=== PATIENT | female | born 1960 | race Caucasian/White ===

== ENCOUNTER 2017-01-14 06:33 | Day surgery (SDC) | payer OTHER ==
[2017-01-07 16:03] LABS: ALANINE AMINOTRANSFERASE 19 IU/L (9-52); ALBUMIN 3.7 g/dL (3.5-5.0); ALKALINE PHOSPHATASE 80 IU/L (38-126); ANION GAP 9 mEq/L (8-16); ASPARTATE AMINOTRANSFERASE 19 IU/L (14-46); BILIRUBIN,TOTAL 0.4 mg/dL (0.1-1.4); CALCIUM 10.3 mg/dL (8.5-10.4); CARBON DIOXIDE 26 mEq/l (22-31); CHLORIDE 101 mEq/L (97-110); CREATININE 0.8 mg/dL (0.6-1.0); GLOMERULAR FILTRATION RATE > 60; GLUCOSE 111 mg/dL (70-100); POTASSIUM 3.8 mEq/L (3.5-5.2); SODIUM 136 mEq/L (134-144); TOTAL PROTEIN 6.5 g/dL (6.3-8.2)
[2017-01-14] MEDS ORDERED: LIDOCAINE 1% 2 ML INJ ID PRN (07:27)
[2017-01-14] MEDS ORDERED: LR 1,000 ML IV ONE (07:27)
[2017-01-14] MEDS ORDERED: MIDAZOLAM 2 MG/2 ML VIAL IVP ONE (07:57)
--- NOTE | 2017-01-14 07:58 | PDANEPAE ---
ANE Past Medical History - Cardiovascular History Hx Hypertension: Yes Hx Arrhythmias: No Hx Chest Pain: No Hx Coronary Artery / Peripheral Vascular Disease: No Hx CHF / Valvular Disease: No Hx Palpitations: No Cardiovascular History Comment: mild htn - Pulmonary History Hx COPD: No Hx Asthma/Reactive Airway Disease: No Hx Recent Upper Respiratory Infection: No Hx Oxygen in Use at Home: No Hx Sleep Apnea: No Sleep Apnea Screening Result - Last Documented: Negative Pulmonary History Comment: exercise induced asthma - Neurologic History Hx Cerebrovascular Accident: No Hx Seizures: No Hx Dementia: No - Endocrine History Hx Diabetes: No Hypothyroid: No Hyperthyroid: No Obesity: no - Renal History Hx Renal Disorders: No - Liver History Hx Hepatic Disorders: No - Neurological & Psychiatric Hx Hx Neurological and Psychiatric Disorders: No - Cancer History Hx Cancer: No - Congenital Disorder History Hx Congenital Disorders: No - GI History GERD: no Hx Gastrointestinal Disorders: No - Other Health History Other Health History: none - Chronic Pain History Chronic Pain: No - Surgical History Prior Surgeries: none ANE Review of Systems Review of Systems: - Exercise capacity METS (RN): 5 METS ANE Patient History - Allergies Allergies/Adverse Reactions: doxycycline Allergy (Verified 01/14/17 07:18) Hives - Home Medications Home Medications: Claritin 01/06/17 [Last Taken 01/14/17 05:45] Epinastine HCl 01/06/17 [Last Taken 01/14/17 05:45] Flonase Allergy Relief 01/06/17 [Last Taken 01/14/17 05:45] Premarin 01/06/17 [Last Taken 01/14/17 05:45] - NPO status NPO Since - Liquids (Date): 01/14/17 NPO Since - Liquids (Time): 02:00 NPO Since - Solids (Date): 01/13/17 NPO Since - Solids (Time): 18:00 - Anes Hx Anes Hx: post operative nausea and vomiting, slow to awaken from anesthesia - Smoking Hx Smoking Status: Never smoked - Family Anes Hx Family Anes Hx: neg - N/A Family Hx Anesthesia Complications: none ANE Labs/Vital Signs - Labs Result Diagrams: 01/07/17 14:40 - Vital Signs Blood Pressure: 120/78 Heart Rate: 54 Respiratory Rate: 16 O2 Sat (%): 97 Height: 172.72 cm Weight: 58.06 kg ANE Physical Exam - Airway Mallampati Score: Class 1 Mouth exam: normal dental/mouth exam - Pulmonary Pulmonary: no respiratory distress, no rales or rhonchi, clear to auscultation - Cardiovascular Cardiovascular: regular rate and rhythym, no murmur, rub, or gallop - ASA Status ASA Status: II ANE Anesthesia Plan Anesthesia Plan: GA w LMA Total IV Anesthesia: No
[2017-01-14] MEDS ORDERED: PROPOFOL/EMULSION 500 MG/50 ML BOTTLE IV ONE (08:12)
[2017-01-14] MEDS ORDERED: fentaNYL 100 MCG/2 ML INJ ONE ×2 (08:12→09:49)
[2017-01-14] MEDS ORDERED: ONDANSETRON 4 MG/2 ML VIAL ONE (08:13)
[2017-01-14] MEDS ORDERED: KETOROLAC 30 MG/1 ML SDV ONE (08:14)
[2017-01-14] MEDS ORDERED: DEXAMETHASONE 4 MG/ML VIAL ONE (08:14)
[2017-01-14] MEDS ORDERED: RANITIDINE 50 MG/2 ML VIAL ONE (08:14)
--- NOTE | 2017-01-14 08:15 | PDHPUP ---
History & Physical Update H&P update statement: This history and physical update is based on an assessment of the patient which was completed after admission or registration (within 24 hours), but prior to the surgery/procedure.
[2017-01-14] MEDS ORDERED: LIDOCAINE 2% 5 ML SDV ONE (08:17)
[2017-01-14] MEDS ORDERED: MEPERIDINE 25 MG/ML SYR IVP PRN (08:49)
[2017-01-14] MEDS ORDERED: ACETAMINOPHEN 500 MG TAB PO PRN (08:49)
[2017-01-14] MEDS ORDERED: fentaNYL 100 MCG/2 ML INJ IVP PRN (08:49)
[2017-01-14] MEDS ORDERED: HYDROCODONE/APAP 5/325 TAB PO PRN (08:49)
[2017-01-14] MEDS ORDERED: NALOXONE HCL 0.4 MG/ML INJ IVP PRN (08:49)
[2017-01-14] MEDS ORDERED: OXYCODONE/APAP 5/325 TAB PO PRN (08:49)
[2017-01-14] MEDS ORDERED: LR 500 ML IV PRN (08:49)
[2017-01-14] MEDS ORDERED: ONDANSETRON 4 MG/2 ML VIAL IVP PRN (08:49)
--- NOTE | 2017-01-14 09:23 | POSTOPPROG ---
Post Op Note Date of Operation: 01/14/17 Surgeon: Elisha Gauthier Anesthesiologist: Holger Sue Anesthesia: LMA Pre-op Diagnosis: endometrial mass Post-op Diagnosis: endometrial polyp Indication: incidenatl mass Procedure: dx H/S , H/S removal of mass/polypectomy Findings: uterine polyp Inf/Abcess present in the surg proc area at time of surgery?: No EBL: Minimal
--- NOTE | 2017-01-14 09:33 | POSTANESTH ---
Post Anesthetic Evaluation Cardiovascular Status: Normal, Stable Respiratory Status: Normal, Stable Level of Consciousness/Mental Status: Can Participate in Eval Pain Control: Adequate, Prn Tx Ordered Nausea/Vomiting Control: Adequate, Prn Tx Ordered Complications Possibly Related to Anesthesia: None Noted
[2017-01-14 10:10] VITALS: TEMP 97.9
--- NOTE | 2017-01-14 10:14 | GOP ---
[f rep st] OPERATIVE REPORT DATE OF OPERATION: 01/14/2017 SURGEON: Elisha Gauthier MD ANESTHESIA: General with LMA. ANESTHESIOLOGIST: Holger Sue. PREOPERATIVE DIAGNOSIS: Incidental endometrial mass. POSTOPERATIVE DIAGNOSIS: Likely endometrial polyp. PROCEDURE PERFORMED: Diagnostic hysteroscopy with hysteroscopic resection of endometrial mass, likel y polypectomy. FINDINGS: Normal tubal ostia with very elongated what appears to be an endometrial polyp originating from the right sidewall of the lower uterine segment of the uterus, somewhat of stenotic cervix. INDICATIONS: Patient is a 56-year old who is on hormone replacement therapy. Her dose of estrogen h ad been increased recently and an ultrasound done to evaluate the endometrial stripe. At the time, s he was noted to have a 1.7 cm endometrial mass, unclear if it was a fibroid or a polyp. Recommend wells rgical removal for pathological evaluation. The patient has had no bleeding. DESCRIPTION OF PROCEDURE: With informed consent signed, patient taken to the operating room, placed under general anesthesia without complication, placed in the low dorsal lithotomy position and bladde r previously emptied. Prepped and draped in the usual sterile fashion. A tenaculum placed on the an terior lip of the cervix. There was significant difficulty getting the smallest dilator in, and with removing the tenaculum to the posterior lip of the cervix and then back to the anterior lip of the c ervix and reattempting multiple times, I was finally able to get the smallest dilator through the inn er os of the cervix, and with gradual dilation, able to dilate the cervix up to 9.5 cm. This process took about 15 minutes. Next, the hysteroscope placed using normal saline as a filling medium and fi ndings as noted above. The [employer] morcellator was used to resect the entire polyp and any other residual tissue. Once this was completely removed and hemostasis was noted, the hyste roscope removed and net fluid deficit was 80 cc. There was no bleeding from the cervix. Patient was placed in the supine position, awakened in the operating room, taken to the recovery room in stable condition. Tolerated the procedure well. COMPLICATIONS: None. /[id number]/MODL
[2017-01-14 10:50] VITALS: BP 119/87
[2017-01-14 11:13] VITALS: PULSE 53; RESP 16; O2SAT 96
== END 2017-01-14 11:05 | disposition home or self-care (01) ==
LOC: FSGY 06:33
PROVIDERS: ATTEND Obstetrics & Gynecology Gynecology
PROC: 0UB98ZX Excision of Uterus, Via Natural or Artificial Opening Endoscopic, Diagnostic (ICD-10-PCS; principal; 2017-01-14 08:00)
DX: N84.0 Polyp of corpus uteri (principal); Z78.0 Asymptomatic menopausal state
CPT/HCPCS: 58558; C1782; J1100; J1885; J2250; J2405; J2704; J2780; J3010

== ENCOUNTER → 2017-11-01 | Outpatient (CLI) | payer OTHER | LOC: FIMAGING 13:01 | PROVIDERS: ATTEND Physician Assistant Medical | DX: Z12.31 Encounter for screening mammogram for malignant neoplasm of breast (principal) ==